=== PATIENT | male | born 1980 | race Caucasian/White ===

== ENCOUNTER 2018-04-13 18:45 | Emergency (ER) | payer MEDICAID ==
[~2018-04-13] VITALS: Wt 73.5 kg
[2018-04-13] MEDS ORDERED: KETOROLAC 30 MG INJ IV STA (19:42)
[2018-04-13] MEDS ORDERED: IBUP-1542 PO (20:55)
[2018-04-13] MEDS ORDERED: METR500T PO (20:56)
[2018-04-13] MEDS ORDERED: CIPR500T4 PO (20:56)
[2018-04-13] MEDS ORDERED: metroNIDAZOLE 500 MG TAB PO ONE (21:00)
[2018-04-13] MEDS ORDERED: CIPROFLOXACIN 500 MG TAB PO ONE (21:00)
--- NOTE | 2018-04-13 21:00 | ERD ---
ER Documentation Chief Complaint Chief Complaint bib self, cc: abd. pain x 3 days, HPI Patient is a 38-year-old male with no medical problems who presents with abdominal pain. The patient has left lower quadrant abdominal pain which started yesterday. It has been constant and sharp in nature. He tried Tylenol. He had subjective fever. He has had no vomiting or diarrhea. He did have a normal bowel movement today. Upon review of old medical records this is the patient's first visit to the emergency department. ROS All systems reviewed and are negative except as per history of present illness. Medications Home Meds Active Scripts Metronidazole* (Flagyl*) 500 Mg Tablet, 500 MG PO TID for 7 Days, TAB Prov:KELSY STONE MD 04/13/18 Ciprofloxacin Hcl* (Ciprofloxacin Hcl*) 500 Mg Tablet, 500 MG PO BID for 7 Days, TAB Prov:KELSY STONE MD 04/13/18 Ibuprofen* (Motrin*) 600 Mg Tab, 600 MG PO Q6H PRN for PAIN AND OR ELEVATED TEMP, #30 TAB Prov:KELSY STONE MD 04/13/18 Allergies Allergies: Coded Allergies: No Known Allergy (Unverified , 04/13/18) PMhx/Soc Medical and Surgical Hx: pt denies Medical Hx, pt denies Surgical Hx Hx Alcohol Use: No Hx Substance Use: No Hx Tobacco Use: No Smoking Status: Never smoker FmHx Family History: No diabetes Physical Exam Vitals Vital Signs Date Temp Pulse Resp B/P (MAP) Pulse Ox O2 O2 Flow FiO2 Time Delivery Rate 04/13/18 98.6 76 19 134/84 100 18:52 (101) Physical Exam Const: No acute distress Head: Atraumatic Eyes: Normal Conjunctiva ENT: Normal External Ears, Nose and Mouth. Neck: Full range of motion. No meningismus. Resp: Clear to auscultation bilaterally Cardio: Regular rate and rhythm, no murmurs Abd: Soft, left lower quadrant tenderness to palpation without rebound or guarding Skin: No petechiae or rashes Back: No midline or flank tenderness Ext: No cyanosis, or edema Neur: Awake and alert Psych: Normal Mood and Affect Result Diagram: 04/13/18194604/13/181946 Results 24 hrs Laboratory Tests Test 04/13/18 19:47 04/13/18 20:26 White Blood Count 12.7 10^3/ul Red Blood Count 5.14 10^6/ul Hemoglobin 15.1 g/dl Hematocrit 43.7 % Mean Corpuscular Volume 85.0 fl Mean Corpuscular Hemoglobin 29.4 pg Mean Corpuscular Hemoglobin Concent 34.6 g/dl Red Cell Distribution Width 12.2 % Platelet Count 223 10^3/UL Mean Platelet Volume 10.8 fl Immature Granulocytes % 0.400 % Neutrophils % 62.2 % Lymphocytes % 26.9 % Monocytes % 7.9 % Eosinophils % 1.9 % Basophils % 0.7 % Nucleated Red Blood Cells % 0.0 /100WBC Immature Granulocytes # 0.050 10^3/ul Neutrophils # 7.9 10^3/ul Lymphocytes # 3.4 10^3/ul Monocytes # 1.0 10^3/ul Eosinophils # 0.2 10^3/ul Basophils # 0.1 10^3/ul Nucleated Red Blood Cells # 0.0 10^3/ul Sodium Level 142 mmol/L Potassium Level 4.0 mmol/L Chloride Level 100 mmol/L Carbon Dioxide Level 29 mmol/L Anion Gap 13 Blood Urea Nitrogen 22 mg/dl Creatinine 1.16 mg/dl Est Glomerular Filtrat Rate mL/min > 60 mL/min Glucose Level 91 mg/dl Calcium Level 10.0 mg/dl Total Bilirubin 0.5 mg/dl Direct Bilirubin 0.00 mg/dl Indirect Bilirubin 0.5 mg/dl Aspartate Amino Transf (AST/SGOT) 36 IU/L Alanine Aminotransferase (ALT/SGPT) 31 IU/L Alkaline Phosphatase 37 IU/L Total Protein 7.7 g/dl Albumin 4.5 g/dl Globulin 3.20 g/dl Albumin/Globulin Ratio 1.40 Lipase 128 U/L Urine Color STRAW Urine Clarity CLEAR Urine pH 7.0 Urine Specific Winter 1.011 Urine Ketones NEGATIVE mg/dL Urine Nitrite NEGATIVE mg/dL Urine Bilirubin NEGATIVE mg/dL Urine Urobilinogen NEGATIVE mg/dL Urine Leukocyte Esterase NEGATIVE Rory/ul Urine Microscopic RBC 1 /HPF Urine Microscopic WBC 0 /HPF Urine Hemoglobin 1+ mg/dL Urine Glucose NEGATIVE mg/dL Urine Total Protein NEGATIVE mg/dl Current Medications Medications Dose Sig/Bruna Start Time Status Last (Trade) Ordered Route PRN Stop Time Admin Dose Reason Admin Ketorolac 30 mg ONCE STAT 04/13/18 DC 04/13/18 Tromethamine IV 19:42 19:47 (Toradol) 04/13/18 19:44 500 mg ONCE ONCE 04/13/18 Ciprofloxacin PO 21:00 (Cipro) 04/13/18 21:01 500 mg ONCE ONCE 04/13/18 Metronidazole PO 21:00 (Flagyl) 04/13/18 21:01 Procedures/MDM CT abdomen pelvis shows acute diverticulitis per radiology without perforation or abscess. Patient is a 38-year-old male presents with acute diverticulitis. There is no perforation or abscess and the patient is otherwise well-appearing. I doubt cholecystitis, pancreatitis, appendicitis, or bowel obstruction. I believe outpatient management is appropriate but the patient will need close follow-up with the local clinics within 24-48 hours. He will be given a prescription for Cipro, Flagyl, and ibuprofen. He was provided with copies of his laboratory studies and CT scan report prior to discharge. Departure Diagnosis: Primary Impression: Diverticulitis Additional Impression: Abdominal pain Abdominal location: left lower quadrant Qualified Codes: R10.32 - Left lower quadrant pain Condition: Fair Patient Instructions: Diverticulitis Ref[facility]: [facility] Svetlana se paulson hecho un examen mdico de control que le indica que no est en jh condicin que requiera tratamiento urgente en el Departamento de Emergencia. Un estudio ms profundo y el tratamiento de shannon condicin pueden esperar sin ningn riesgo hasta que usted sea atendida/o en el consultorio de shannon mdico o jh clnica. Es responsabilidad suya arreglar jh massimo para el seguimiento del kehinde. MANEJO DE CONDICIONES NO URGENTES EN EL FUTURO 1) Si usted tiene un mdico de atencin primaria: Usted debera llamar a shannon mdico de atencin primaria antes de venir al departamento de emergencia. Despus de las horas de consultorio, shannon doctor o shannon asociado/a est disponible por telfono. El mdico o enfermero de partha en el servicio telefnico puede asesorarle por jasper medio para atender el problema, o kehinde contrario se puede programar jh massimo. 2) Si usted no tiene un mdico de atencin primaria: Llame al mdico o clnica de referencia que aparece abajo jovan las horas de consultorio para hacer jh massimo para que le vean. CLINICAS: [facility] [phone] [facility] [phone] [facility] [phone] [place] [address] [phone] [place] [address] [phone] [facility] [phone] [address] Additional Instructions: Llame al doctor MAANA y roxann jh MASSIMO PARA DENTRO DE 1-2 [place].Dgale a la secr etaria que nosotros le instruimos hacer esta massimo.Avise o llame si shannon condicin se empeora antes de la massimo. Regresa aqui si peor o no mejor. KELSY STONE MD Apr 13, 2018 21:00
[2018-04-13 21:02] VITALS: BP 128/87; PULSE 72; RESP 14
== END 2018-04-13 21:02 | disposition home or self-care (01) ==
LOC: E/R 18:45
DX: K57.32 Diverticulitis of large intestine without perforation or abscess without bleeding (principal)
CPT/HCPCS: 74176; 80053; 81001; 83690; 85025; J1885; Z7610; 36415; 96374